=== PATIENT | male | born 1945 | race Caucasian/White ===

== ENCOUNTER 2019-01-16 17:38 | Emergency (ER) | payer OTHER ==
--- NOTE | 2019-01-16 18:11 | EDPHY ---
H & P Stated Complaint: left hand red and swollen, possible infection Time Seen by Provider: 01/16/19 18:08 HPI/ROS: HPI: This is a 73-year-old male who presents with Chief Complaint: left hand red and swollen, possible infection Location: Left middle finger Quality: Redness, swelling Duration: 3 days Signs and Symptoms: No bleeding, no radiation, no numbness, no weakness, no tingling, no incontinence, + decreased range of motion, + swelling, + pain, no fever Timing: Worsening Severity: Moderate to severe Context: Patient presents from [facility] urgent care with complaints of left middle finger redness, swelling, pain, decreased range of motion x3 days. Patient reports that he was told to come to the emergency room and he would "see a hand surgeon." Ten days ago patient was drooling and accidentally hit his left middle finger on the palmar aspect. Patient reports that he is right-hand dominant. Patient is extremely upset that he will not be seen by hand surgeon in the emergency room. Denies fever, weakness, chills, drainage. Reports tetanus is up-to-date. Modifying Factors: None Comment: ROS: A comprehensive 10 system review of systems is otherwise negative aside from elements mentioned in the history of present illness. MEDICAL/SURGICAL/SOCIAL HISTORY: Medical history: Generally healthy. Does not take any regular medications. Surgical history: Denies Social history: Former smoker. Retired. CONSTITUTIONAL: Adult white male, nontoxic in appearance, awake and alert, no obvious distress HEENT: Atraumatic and normocephalic. NECK: supple, no midline tenderness Cardiovascular: Normal S1/S2, regular rate, regular rhythm, without murmur rub or gallop. PULMONARY/CHEST: Symmetrical and nontender. Clear to auscultation bilaterally. Good air movement. No accessory muscle usage. ABDOMEN: Soft, nondistended, nontender. EXTREMITIES: 2/2 pulses, strength 5/5, left middle finger palmar aspect shows tiny pinpoint scab near the MCP joint with moderate to severe swelling to the point that the finger is twice the size of the other fingers; redness, warmth. Pain with flexion extension. + Kanavel's signs DIP/PIP/MCP flexion/extension intact with good light touch sensation. no deformities, no clubbing, no cyanosis or edema. NEUROLOGICAL: no focal neuro deficits. GCS 15. Light touch sensation intact. SKIN: Warm and dry, no erythema. no rash. Good capillary refill. Source: Patient, RN/MD Exam Limitations: No limitations - Personal History Current Tetanus/Diphtheria Vaccine: Yes Current Tetanus Diphtheria and Acellular Pertussis (TDAP): Yes - Medical/Surgical History Hx Asthma: No Hx Chronic Respiratory Disease: No Hx Diabetes: No Hx Cardiac Disease: No Hx Renal Disease: No Hx Cirrhosis: No Hx Alcoholism: No Hx HIV/AIDS: No Hx Splenectomy or Spleen Trauma: No - Social History Smoking Status: Former smoker Constitutional: Initial Vital Signs Temperature (C) 37 C 01/16/19 17:41 Heart Rate 65 01/16/19 17:41 Respiratory Rate 18 01/16/19 17:41 Blood Pressure 130/69 H 01/16/19 17:41 O2 Sat (%) 96 01/16/19 17:41 O2 Delivery Mode Room Air Allergies/Adverse Reactions: No Known Allergies Allergy (Unverified 01/16/19 17:45) Home Medications: Medication Instructions Recorded NK [No Known Home Meds] 01/16/19 Medical Decision Making ED Course/Re-evaluation: Vital signs reviewed and stable upon arrival. No systemic signs. Tetanus is up-to-date. Recommended inpatient hospitalization for IV antibiotics and Hand surgery consult for possible washout. Patient is alert and oriented x4, competent to make decisions, but refuses to be admitted to the hospital. Patient understands the risk of worsening infection, sepsis, , loss of limb. Patient has agreed to have laboratory studies and IV antibiotics being administered. Given IV Ancef 1 g and IV vancomycin 1 g 1930: Labs reviewed. No leukocytosis, anemia, platelet dysfunction. CRP 38, ESR 8, creatinine 1.1 Patient understands that he is to call Dr. Lozada office tomorrow for follow-up appointment date and time. This patient was seen under the supervision of my secondary supervising physician. I evaluated care for this patient with attending. Differential Diagnosis: Differential diagnosis includes but is not limited to abscess, tenosynovitis, sepsis. - Data Points Laboratory Results: Laboratory Results 01/16/19 18:21 01/16/19 18:21 01/16/19 01/16/19 18:21 18:21 WBC 5.81 10^3/uL 10^3/uL (3.80-9.50) RBC 5.13 10^6/uL 10^6/uL (4.40-6.38) Hgb 15.5 g/dL g/dL (13.7-17.5) Hct 46.0 % % (40.0-51.0) MCV 89.7 fL fL (81.5-99.8) MCH 30.2 pg pg (27.9-34.1) MCHC 33.7 g/dL g/dL (32.4-36.7) RDW 12.3 % % (11.5-15.2) Plt Count 248 10^3/uL 10^3/uL (150-400) MPV 9.3 fL fL (8.7-11.7) Neut % (Auto) 47.1 % % (39.3-74.2) Lymph % (Auto) 43.0 % % (15.0-45.0) Throckmorton % (Auto) 7.9 % % (4.5-13.0) Eos % (Auto) 1.4 % % (0.6-7.6) Baso % (Auto) 0.3 % % (0.3-1.7) Nucleat RBC Rel Count 0.0 % % (0.0-0.2) Absolute Neuts (auto) 2.73 10^3/uL 10^3/uL (1.70-6.50) Absolute Lymphs (auto) 2.50 10^3/uL 10^3/uL (1.00-3.00) Absolute Monos (auto) 0.46 10^3/uL 10^3/uL (0.30-0.80) Absolute Eos (auto) 0.08 10^3/uL 10^3/uL (0.03-0.40) Absolute Basos (auto) 0.02 10^3/uL 10^3/uL (0.02-0.10) Absolute Nucleated RBC 0.00 10^3/uL 10^3/uL (0-0.01) Immature Gran % 0.3 % % (0.0-1.1) Immature Gran # 0.02 10^3/uL 10^3/uL (0.00-0.10) ESR 8 MM/HR MM/HR (0-20) Sodium 137 mEq/L mEq/L (135-145) Potassium 4.4 mEq/L mEq/L (3.5-5.2) Chloride 100 mEq/L mEq/L (97-110) Carbon Dioxide 25 mEq/l mEq/l (22-31) Anion Gap 12 mEq/L mEq/L (6-14) BUN 22 mg/dL mg/dL (7-23) Creatinine 1.1 mg/dL mg/dL (0.7-1.3) Estimated GFR > 60 Glucose 102 mg/dL H mg/dL (70-100) Calcium 9.8 mg/dL mg/dL (8.5-10.4) C-Reactive Protein 37.9 mg/L H mg/L (<10.0) Medications Given: Discontinued Medications Cefazolin Sodium/Dextrose (Ancef 1 Gm (Premix)) 50 mls @ 200 mls/hr IV EDNOW ONE PRN Reason: Protocol Stop: 01/16/19 18:30 Last Admin: 01/16/19 19:16 Dose: 50 mls Vancomycin/Sodium Chloride (Vancomycin 1 Gm (Premix)) 250 mls @ 250 mls/hr IV EDNOW ONE PRN Reason: Protocol Stop: 01/16/19 19:15 Last Admin: 01/16/19 18:34 Dose: 250 mls Departure - Departure Disposition: Against Medical Advice Clinical Impression: Abscess of left middle finger, Cellulitis of left middle finger, Tenosynovitis of finger Condition: Fair Instructions: Cellulitis (ED), Tenosynovitis (ED) Additional Instructions: Please call Orthopedics/Hand first thing tomorrow morning as you will need to be seen tomorrow in the office. Follow-Up: Please follow-up as noted above. Follow-up sooner if your condition worsens or if you develop any new problems. Call as soon as possible for an appointment. Be clear when you call for an appointment that this is an Emergency Department follow-up. Contact the Emergency Department if you have trouble arranging follow-up care. Our referrals are not based on your insurance network. When time allows, contact your insurance carrier to verify the referral physician is in your plan. If not, get a referral for an in-personal computer network engineer. By leaving against medical advise you have verbalized complete understanding and acceptance of the risks associated with doing so, including, but not limited to, , chronic & permanent disability and impairment, and other circumstances and consequences too numerous to mention herein Referrals: Theo Lozada MD [Medical Doctor] - As per Instructions
[2019-01-16] MEDS ORDERED: VANCOMYCIN HCL/NORMAL SALINE 250 ML IV ONE (18:16)
[2019-01-16 18:32] LABS: PLATELET COUNT 248 10^3/uL (150-400)
[2019-01-16 19:46] VITALS: BP 123/74
== END 2019-01-16 19:46 | disposition left against medical advice (07) ==
DX: L03.012 Cellulitis of left finger (principal); M65.842 Other synovitis and tenosynovitis, left hand
CPT/HCPCS: 96365; 96375; 99284; J0690; J3370

== ENCOUNTER 2019-01-17 15:36 | Inpatient (IN) | payer OTHER ==
--- NOTE | 2019-01-17 15:58 | EDPHY ---
H & P Stated Complaint: Seen for infected L mid finger, no exudate. Swollen. Time Seen by Provider: 01/17/19 15:48 HPI/ROS: CHIEF COMPLAINT: Left middle digit finger infection HISTORY OF PRESENT ILLNESS: 73-year-old male seen emergency department originally last evening for concerns of infection left middle digit. At that time was recommended he be admitted to the hospital, he left against medical advice. He followed up in the office of Dr. Theo Lozada, saw 1 of the orthopedic PAs who referred the patient back to the emergency department to plan for surgical washout and hospital admission. The patient initially had a puncture wound to the palmar aspect, proximal aspect of the proximal phalanx of the 3rd digit. While in the ER last evening he received dose of IV Ancef and IV vancomycin. He notes no improvement symptoms, no worsening of symptoms however. Denies: Fever, chills, immunosuppressed condition Last oral intake was Yi food at 1:00 p.m. today. REVIEW OF SYSTEMS: 10 systems reviewed and negative with the exception of the elements mentioned in the history of present illness PAST MEDICAL & SURGICAL HISTORY: No pertinent medical or surgical history . No anticoagulant use. Tetanus was updated at his emergency department visit yesterday. SOCIAL HISTORY: Nonsmoker PHYSICAL EXAM (Prior to examination, patient consented to physical exam, hands were washed and my usual and customary physical exam procedures followed) 1) GENERAL: Well-developed, well-nourished, alert and oriented. Appears to be in no acute distress. 2) HEAD: Normocephalic, atraumatic 3) HEENT: Pupils equal, round, reactive to light bilaterally. Sclera anicteric. Nasopharynx, oropharynx, clear, no lesions. MoistDry mucous membranes. Ears bilaterally with normal tympanic membranes. 4) NECK: Full range of motion, no meningeal signs. 5) LUNGS: Clear auscultation bilaterally, no wheezes, no rhonchi, no retractions. 6) HEART: Regular rate and rhythm, no murmur, no heave, no gallop. 7) ABDOMEN: No guarding, no rebound, no focal tenderness, negative McBurney's, negative 's, negative Rovsing's, negative peritoneal sign, 8) MUSCULOSKELETAL: Left hand: Left middle digit positive kanavel sign, notably pain along the flexor tendon sheath, pain with passive extension of the digit, swollen digit, digit kept in flexion. No crepitus. Brisk capillary refill. 9) BACK: No CVA tenderness, no midline vertebral tenderness, no fluctuance, no step-off, no obvious trauma, no visual or palpable abnormality. 10) SKIN: No rash, no petechiae. 11) Psychiatric: Patient is oriented X 3, there is no agitation. DIFFERENTIAL DIAGNOSIS: In no particular order including but not limited to infectious tenosynovitis, cellulitis, necrotizing fasciitis - Personal History Current Tetanus/Diphtheria Vaccine: Unsure - Medical/Surgical History Hx Asthma: No Hx Chronic Respiratory Disease: No Hx Diabetes: No Hx Cardiac Disease: No Hx Renal Disease: No Hx Cirrhosis: No Hx Alcoholism: No Hx HIV/AIDS: No Hx Splenectomy or Spleen Trauma: No - Social History Smoking Status: Former smoker Constitutional: Initial Vital Signs Temperature (C) 36.8 C 01/17/19 15:42 Heart Rate 75 01/17/19 15:42 Respiratory Rate 16 01/17/19 15:42 Blood Pressure 130/73 H 01/17/19 15:42 O2 Sat (%) 94 01/17/19 15:42 O2 Delivery Mode Room Air Allergies/Adverse Reactions: No Known Allergies Allergy (Verified 01/17/19 15:42) Home Medications: Medication Instructions Recorded NK [No Known Home Meds] 01/16/19 Medical Decision Making - Diagnostics Imaging Results: Imaging Impressions Finger X-Ray 01/17/19 15:54 Impression: Soft tissue swelling left third finger without underlying osseous abnormality. ED Course/Re-evaluation: 3:59 p.m.: Case discussed with secondary supervising physician Dr. Ramiro Harper in the ER. I reviewed old medical records. Patient agrees to stand Hospital. Will obtain blood work, administer IV antibiotics, consult with hospitalist and Hand surgery on-call Dr. Theo Lozada. 4:24 p.m.: Consultation Dr. Theo Lozada Hand surgery who will plan taking the patient operating room later this evening. Patient remains NPO since 1:[address] Theo Lozada requests we hold on further IV antibiotics at this time. - Data Points Laboratory Results: Laboratory Results 01/17/19 16:00 01/17/19 16:00 01/17/19 01/17/19 16:00 16:00 WBC 5.04 10^3/uL 10^3/uL (3.80-9.50) RBC 4.84 10^6/uL 10^6/uL (4.40-6.38) Hgb 14.8 g/dL g/dL (13.7-17.5) Hct 42.8 % % (40.0-51.0) MCV 88.4 fL fL (81.5-99.8) MCH 30.6 pg pg (27.9-34.1) MCHC 34.6 g/dL g/dL (32.4-36.7) RDW 12.2 % % (11.5-15.2) Plt Count 257 10^3/uL 10^3/uL (150-400) MPV 9.4 fL fL (8.7-11.7) Neut % (Auto) 55.8 % % (39.3-74.2) Lymph % (Auto) 36.3 % % (15.0-45.0) Rooks % (Auto) 6.3 % % (4.5-13.0) Eos % (Auto) 1.0 % % (0.6-7.6) Baso % (Auto) 0.4 % % (0.3-1.7) Nucleat RBC Rel Count 0.0 % % (0.0-0.2) Absolute Neuts (auto) 2.81 10^3/uL 10^3/uL (1.70-6.50) Absolute Lymphs (auto) 1.83 10^3/uL 10^3/uL (1.00-3.00) Absolute Monos (auto) 0.32 10^3/uL 10^3/uL (0.30-0.80) Absolute Eos (auto) 0.05 10^3/uL 10^3/uL (0.03-0.40) Absolute Basos (auto) 0.02 10^3/uL 10^3/uL (0.02-0.10) Absolute Nucleated RBC 0.00 10^3/uL 10^3/uL (0-0.01) Immature Gran % 0.2 % % (0.0-1.1) Immature Gran # 0.01 10^3/uL 10^3/uL (0.00-0.10) Sodium 137 mEq/L mEq/L (135-145) Potassium 4.3 mEq/L mEq/L (3.5-5.2) Chloride 106 mEq/L mEq/L (97-110) Carbon Dioxide 24 mEq/l mEq/l (22-31) Anion Gap 7 mEq/L mEq/L (6-14) BUN 19 mg/dL mg/dL (7-23) Creatinine 1.0 mg/dL mg/dL (0.7-1.3) Estimated GFR > 60 Glucose 102 mg/dL H mg/dL (70-100) Calcium 9.8 mg/dL mg/dL (8.5-10.4) Departure - Departure Disposition: [facility] Inpatient Acute Clinical Impression: Infectious tenosynovitis Condition: Fair
[2019-01-17] MEDS ORDERED: oxyCODONE IR 5 MG TAB PO PRN (16:23)
[2019-01-17] MEDS ORDERED: HYDROmorphONE/DILAUDID 1 MG/ML INJ IVP PRN (16:23)
[2019-01-17] MEDS ORDERED: ONDANSETRON 4 MG/2 ML VIAL IVP PRN ×2 (16:23→21:32)
[2019-01-17] MEDS ORDERED: ACETAMINOPHEN 325 MG TAB PO PRN (16:23)
[2019-01-17] MEDS ORDERED: ONDANSETRON DISINTEGRATING 4 MG TAB PO PRN (16:23)
[2019-01-17 16:25] LABS: PLATELET COUNT 257 10^3/uL (150-400)
--- NOTE | 2019-01-17 16:40 | PDGENHP ---
History and Physical - Chief Complaint finger infection - History of Present Illness 73yo healthy M presents to ED with left 3rd finger swelling, pain, and decreased ROM. He was using a drill approximately 2 weeks ago. It slipped and punctured the palmar aspect of proximal left 3rd finger. He applied hydrogen peroxide and was soaking it in epsom salt baths but it wasn't improving. He also tried to drain it at home but nothing came out. He came to the ED yesterday. He was administered IV cefazolin and vancomycin. Hand surgery was called who recommended admission but the patient left AMA. He did not notice any improvement in his symptoms after receiving antibiotics. He did have some chills last night but no fevers. He hasn't noticed any drainage or redness spreading up his arm. He is unable to flex the finger. No pain at wrist or elbow. In the ED, Dr Lozada of hand surgery was consulted and is planning on taking him to the OR later this evening. He last ate at 1pm today. Case discussed with ED provider Daniella Wong. History Information - Allergies/Home Medication List Allergies/Adverse Reactions: No Known Allergies Allergy (Verified 01/17/19 15:42) Home Medications: NK [No Known Home Meds] 01/16/19 [Last Taken Unknown] I have personally reviewed and updated: family history, medical history, social history, surgical history - Past Medical History no pertinent PMH - Surgical History Additional surgical history: hernia repair - Family History Positive for: non-pertinent - Social History Smoking Status: Former smoker Alcohol Use: Rarely Drug Use: None Additional social history: Lives alone. 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 Review of Systems Review of Systems: ROS: 10pt was reviewed & negative except for what was stated in HPI & below Physical Exam Physical Exam: Temp Pulse Resp BP Pulse Ox 36.8 C 75 16 130/73 H 94 01/17/19 15:42 01/17/19 15:42 01/17/19 15:42 01/17/19 15:42 01/17/19 15:42 Constitutional: no apparent distress, appears nourished, not in pain Eyes: PERRL, anicteric sclera, EOMI Ears, Nose, Mouth, Throat: moist mucous membranes, hearing normal, ears appear normal, no oral mucosal ulcers Cardiovascular: regular rate and rhythym, no murmur, rub, or gallop, other (2+ left radial pulse), No edema Respiratory: no respiratory distress, no rales or rhonchi, clear to auscultation Gastrointestinal: normoactive bowel sounds, soft, non-tender abdomen, no palpable masses Genitourinary: no bladder fullness, no bladder tenderness Skin: other (swelling, mild erythema of proximal left 3rd digit with small puncture wound, no lymphangitic spread) Musculoskeletal: other (unable to flex 3rd digit) Neurologic: AAOx3, sensation intact bilaterally Psychiatric: interacting appropriately, not anxious, not encephalopathic, thought process linear Lab Data & Imaging Review 01/17/19 16:00 01/17/19 16:00 WBC 5.04 10^3/uL (3.80-9.50) 01/17/19 16:00 RBC 4.84 10^6/uL (4.40-6.38) 01/17/19 16:00 Hgb 14.8 g/dL (13.7-17.5) 01/17/19 16:00 Hct 42.8 % (40.0-51.0) 01/17/19 16:00 MCV 88.4 fL (81.5-99.8) 01/17/19 16:00 MCH 30.6 pg (27.9-34.1) 01/17/19 16:00 MCHC 34.6 g/dL (32.4-36.7) 01/17/19 16:00 RDW 12.2 % (11.5-15.2) 01/17/19 16:00 Plt Count 257 10^3/uL (150-400) 01/17/19 16:00 MPV 9.4 fL (8.7-11.7) 01/17/19 16:00 Neut % (Auto) 55.8 % (39.3-74.2) 01/17/19 16:00 Lymph % (Auto) 36.3 % (15.0-45.0) 01/17/19 16:00 Craig % (Auto) 6.3 % (4.5-13.0) 01/17/19 16:00 Eos % (Auto) 1.0 % (0.6-7.6) 01/17/19 16:00 Baso % (Auto) 0.4 % (0.3-1.7) 01/17/19 16:00 Nucleat RBC Rel Count 0.0 % (0.0-0.2) 01/17/19 16:00 Absolute Neuts (auto) 2.81 10^3/uL (1.70-6.50) 01/17/19 16:00 Absolute Lymphs (auto) 1.83 10^3/uL (1.00-3.00) 01/17/19 16:00 Absolute Monos (auto) 0.32 10^3/uL (0.30-0.80) 01/17/19 16:00 Absolute Eos (auto) 0.05 10^3/uL (0.03-0.40) 01/17/19 16:00 Absolute Basos (auto) 0.02 10^3/uL (0.02-0.10) 01/17/19 16:00 Absolute Nucleated RBC 0.00 10^3/uL (0-0.01) 01/17/19 16:00 Immature Gran % 0.2 % (0.0-1.1) 01/17/19 16:00 Immature Gran # 0.01 10^3/uL (0.00-0.10) 01/17/19 16:00 Interpretation: Left finger x-ray: soft tissue swelling at 3rd finger without any underlying osseus abnormality Assessment & Plan Assessment: 73yo healthy M presents to ED with left 3rd finger swelling, pain, and decreased ROM. Plan: #Left 3rd digit flexor tendon tenosynovitis - Dr Lozada of hand surgery consulted, planning on taking to OR this evening for I&D and cultures - Hold on additional antibiotics until after procedure - Pain control VTE ppx: SCDs Code: full Diet: NPO until procedure, then regular Dispo: Admit under observation
--- NOTE | 2019-01-17 16:42 | SOAPPROG ---
SOAP Progress Note Assessment/Plan: Assessment: L III septic flexor tendon tenosynovitis. Plan: To OR urgently for I+D and Cultures. Hold IV ABX until post cultures in OR. 01/17/19 16:39 Objective: Vital Signs Temp Pulse Resp BP Pulse Ox 36.8 C 75 16 130/73 H 94 01/17/19 15:42 01/17/19 15:42 01/17/19 15:42 01/17/19 15:42 01/17/19 15:42 ICD10 Worksheet Patient Problems: Problems Problem Status Onset Tenosynovitis of finger and hand Acute Tenosynovitis of left hand Acute - ICD10 Problem Qualifiers (1) Tenosynovitis of finger and hand (2) Tenosynovitis of left hand
[2019-01-17] MEDS ORDERED: LR 1,000 ML IV ONE (20:05)
[2019-01-17] MEDS ORDERED: BUPIVACAINE 0.5% 30 ML SDV ONE (20:20)
[2019-01-17] MEDS ORDERED: PROPOFOL 200 MG/20 ML VIAL ONE (21:04)
[2019-01-17] MEDS ORDERED: fentaNYL 100 MCG/2 ML INJ ONE (21:04)
[2019-01-17] MEDS ORDERED: NALOXONE HCL 0.4 MG/ML INJ IVP PRN (21:07)
--- NOTE | 2019-01-17 21:07 | PDANEPAE ---
ANE Past Medical History - Pulmonary History Hx Oxygen in Use at Home: No Hx Sleep Apnea: No Sleep Apnea Screening Result - Last Documented: Positive - Endocrine History Hx Diabetes: No Obesity: no - Chronic Pain History Chronic Pain: No ANE Review of Systems Review of Systems: ANE Patient History - Allergies Allergies/Adverse Reactions: No Known Allergies Allergy (Verified 01/17/19 15:42) - Home Medications Home medications: home medication list seen and reviewed Home Medications: NK [No Known Home Meds] 01/16/19 [Last Taken Unknown] - NPO status NPO Status: no food or drink >8 hours NPO Since - Liquids (Date): 01/17/19 NPO Since - Liquids (Time): 12:30 NPO Since - Solids (Date): 01/17/19 NPO Since - Solids (Time): 12:30 - Anes Hx Anes Hx: no prior problems - Smoking Hx Smoking Status: Former smoker - Alcohol Use Alcohol Use: Rarely ANE Labs/Vital Signs - Labs Result Diagrams: 01/17/19 16:00 01/17/19 16:00 - Vital Signs Blood Pressure: 119/74 Heart Rate: 62 Respiratory Rate: 16 O2 Sat (%): 95 Height: 182.88 cm Weight: 77.111 kg ANE Physical Exam - Airway Neck exam: FROM Mallampati Score: Class 1 Mouth exam: normal dental/mouth exam - Pulmonary Pulmonary: no respiratory distress, no rales or rhonchi, clear to auscultation - Cardiovascular Cardiovascular: regular rate and rhythym, no murmur, rub, or gallop - ASA Status ASA Status: I ANE Anesthesia Plan Anesthesia Plan: GA w LMA
[2019-01-17] MEDS ORDERED: ONDANSETRON 4 MG/2 ML VIAL ONE (21:11)
[2019-01-17] MEDS ORDERED: KETOROLAC 30 MG/1 ML SDV ONE (21:11)
[2019-01-17] MEDS ORDERED: LIDOCAINE 2% 5 ML SDV ONE (21:11)
[2019-01-17] MEDS ORDERED: LR 500 ML IV PRN (21:32)
[2019-01-17] MEDS ORDERED: PROMETHAZINE HCL 25 MG/ML INJ IVP PRN (21:32)
[2019-01-17] MEDS ORDERED: fentaNYL 100 MCG/2 ML INJ IVP PRN (21:32)
[2019-01-17] MEDS ORDERED: MEPERIDINE 25 MG/0.5 ML AMP IVP PRN (21:32)
[2019-01-17] MEDS ORDERED: HYDROCODONE/APAP 5/325 TAB PO PRN (21:32)
[2019-01-17] MEDS ORDERED: ceFAZolin 1 GM VIAL ONE ×2 (21:43)
--- NOTE | 2019-01-17 21:57 | POSTOPPROG ---
Post Op Note Date of Operation: 01/17/19 Surgeon: Theo Lozada Anesthesiologist: Yulisa Estrella Anesthesia: LMA Pre-op Diagnosis: Septic L III Flexor Tendon Tenosysnovitis Post-op Diagnosis: Same Procedure: Drainage or Flexor sheath L III Findings: Thick pus Inf/Abcess present in the surg proc area at time of surgery?: Yes Depth: Organ Space EBL: Minimal Bowel Protocol: No Clean Closure Performed: No Specimen(s): Culture to Lab
--- NOTE | 2019-01-17 21:59 | POSTANESTH ---
Post Anesthetic Evaluation Cardiovascular Status: Normal, Stable, Similar to Pre-Op Cond Respiratory Status: Normal, Stable, Similar to Pre-op Cond. Level of Consciousness/Mental Status: Can Participate in Eval, Moderately Sleepy Pain Control: Adequate, Prn Tx Ordered Nausea/Vomiting Control: Adequate, Prn Tx Ordered Complications Possibly Related to Anesthesia: None Noted
[2019-01-17] MEDS ORDERED: VANCOMYCIN 750 MG in D5W 150 ML IV SCH (22:30)
[2019-01-17] MEDS ORDERED: VANCOMYCIN 1.25 GM in NS 250 ML IV ONE (23:00)
--- NOTE | 2019-01-18 06:13 | GCON ---
[f rep st] CONSULTATION INPATIENT CONSULTATION DATE OF CONSULTATION: 01/17/2019 REASON FOR CONSULTATION: Infected left long finger. HISTORY: I was asked to see the patient due to the ongoing infection identified in the left long fin reynaldo at 2 different emergency department visits. One was last night when the patient left without julien atment. He presented again today to the emergency department and agreed to admission to the hospital for this. He had all 4 positive cannibal signs for infection of the flexor tendon sheath of the lef t long finger. HISTORY OF PRESENT ILLNESS: Approximately 2 weeks ago he was using a power drill when it slipped and the drill point punctured his left long finger. He treated this with hydrogen peroxide and Viverae lt soakings. He tried to drain this at home, but was unsuccessful with this. He did get 1 dose of I V Kefzol yesterday in the emergency department. He did not agree to a hospital admission yesterday. The lack of any improvement today, however, prompted him to return. He was admitted to the hospital with plans to be brought to the operating room for I and D procedure based on his clinical presentat ion. Otherwise, he is generally in good health. He indicates he does not have any allergies to medi cations nor does he take any medications routinely. The remaining portion of his history is well out lined in his admission H and P and both emergency department visits from today and from yesterday, wh ich I have reviewed. EXAMINATION: This is essentially confined to the left hand. His left long finger is markedly swolle n. He is exquisitely tender along the flexor tendon sheath to a much greater extent than he is along any of the extensor surfaces. He holds the left long finger in a position of flexion and has signif icant increased discomfort with any attempts to extend the finger. This represents all 4 cannibal ca rdinal signs for flexor tendon sheath infection. He, however, does not have an elevated temperature and his white count is normal. In spite of the normal white count, he has clear evidence of flexor t endon sheath infection of the left long finger. PLAN: My plan is to bring him to the operating room for formal I and D procedure and obtaining of de finitive cultures. I estimate he will be hospitalized for 2-3 days while we determine appropriate an tibiotic therapy for this. /[id number]/MODL
--- NOTE | 2019-01-18 06:23 | GOP ---
[f rep st] OPERATIVE REPORT DATE OF OPERATION: 01/18/2019 SURGEON: Theo Lozada MD PREOPERATIVE DIAGNOSIS: Left long finger septic flexor tenosynovitis. POSTOPERATIVE DIAGNOSIS: Left long finger septic flexor tenosynovitis. PROCEDURE PERFORMED: Irrigation and debridement procedure left long finger flexor tendon sheath. FINDINGS: Thick pus was identified within the flexor tendon sheath all the way from the distal to th e A4 daria at the insertion of the profundus tendon through the proximal opening of the A1 daria. This was irrigated until clear return was achieved. Cultures were obtained from the pus within the flexor tendon sheath. INDICATIONS: The patient is a 73-year-old gentleman, approximately 2 weeks ago had a puncture wound to his left long finger with a drill point that slipped. It has progressively gotten worse despite t he hydrogen peroxide cleansing and Epsom salt soaks. His finger has become remarkably stiff and at p resentation to the emergency department yesterday, he was positive for cannibal signs. The patient l eft the emergency department against medical advice at that time, but returned today for definitive t reatment. Due to all 4 cannibal signs being positive for flexor tenosynovitis, he is brought urgentl y to the operating room for definitive management and obtaining of definitive cultures. DESCRIPTION OF PROCEDURE: After routinely checking the patient's identification and consent and the successful induction of an LMA general anesthetic, the patient's left upper extremity was prepped and draped in the usual standard fashion. A surgical time-out was completed. I did exsanguinate the gracia nd but not the long finger with an Esmarch wrap and a pneumatic tourniquet previously placed about th e proximal left arm was inflated to 250 mmHg. A longitudinal incision over the region of the A1 pull ey and a transverse incision at the DIP flexion crease were both carried sharply through the skin. S pread bluntly through the subcutaneous tissue down to the level of the flexor tendon sheath. Distall y, when I opened the sheath just at its insertion at the insertion of the FDP, there was thick pus id entified. I milked this out distally by pressing on the flexor sheath over the middle phalanx and th ick pus was encountered. This was sent for culture. I then dissected through the longitudinal incis ion over the A1 daria down to the flexor tendon sheath and I incised the A1 daria opening it. I pa ssed the pediatric feeding tube from proximal to distal, ending in the middle of the flexor tendon sh eath. I then irrigated approximately 50 cc of normal saline with all this being distributed distally out the end of the finger until this was clear. I performed identical procedure by placing the feed ing tube from distal to proximal and then irrigating this until the fluid was clear coming out of the proximal wound. I then irrigated both wounds thoroughly. I closed the wounds with simple sutures o f 4-0 nylon followed by application of a sterile bulky dressing and compressive wrap. The patient to lerated the procedure well. He was reversed his anesthetic and extubated in the operating room. He was transferred to the recovery room in excellent condition. There were no complications. /[id number]/MODL
--- NOTE | 2019-01-18 10:07 | ASMTCMCOM ---
CM Note CM Note Notes: Patient admitted with infectious tenosynovitis of the L long finger. He was taken to OR yesterday for I&D + cultures. He is normally healthy and independent. I do not anticipate any d/c needs. Case Management available if this changes. Current CM discharge plan: home independent Date Signed: 01/18/2019 10:06 AM Electronically Signed By:Anni Camarillo RN
[2019-01-18] MEDS: VANCOMYCIN 750 MG in D5W 150 ML IV SCH ×2 (11:51→23:45)
--- NOTE | 2019-01-18 13:03 | HOSPPROG ---
Hospitalist Progress Note Assessment/Plan: Nadir is a 73yo healthy M presents to ED with left 3rd finger swelling, pain, and decreased ROM. 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 *plan: Nadir will need another midnight stay for treatment of the above, he will require IV abx and need to await cultures. ID will see him later. I reviewed w him the risks of not treating his finger appropriately and he is willing to stay. - Subjective: Nadir said his pain is well managed, concerned about being on abx and becoming immunocompromised and being in a hospital Objective: Vital Signs Temp Pulse Resp BP Pulse Ox 36.9 C 71 15 102/56 L 93 01/18/19 11:07 01/18/19 11:07 01/18/19 11:07 01/18/19 11:07 01/18/19 11:07 Microbiology 01/17/19 21:00 Gram Stain - Final Finger - Eswab 01/17/19 01/18/19 01/19/19 05:59 05:59 05:59 Intake Total 660 500 Output Total 660 30 Balance 0 470 - Physical Exam Constitutional: no apparent distress, appears nourished, not in pain Eyes: PERRL, other (glasses) Ears, Nose, Mouth, Throat: hearing normal Cardiovascular: regular rate and rhythym Respiratory: no respiratory distress Skin: warm, other (left middle finger w dressing in place) Musculoskeletal: full muscle strength Neurologic: AAOx3 Psychiatric: interacting appropriately ICD10 Worksheet Patient Problems: Problems Problem Status Onset Infectious tenosynovitis Acute Tenosynovitis of finger and hand Acute Tenosynovitis of left hand Acute
--- NOTE | 2019-01-18 13:34 | PDMN ---
Medical Necessity Medical necessity: Change to IP, as of 01/18/19, per [facility] & [facility] Wound [facility] Skin [facility]aga[facility]; los >2 mn s/p I&D of L long finger flexor tendon sheath; awaiting cultures; requiring further monitoring, ID consult & IV abx
[2019-01-18] MEDS: SULFAMETHOX/TMP 800/160 MG 1 TAB PO SCH ×2 (16:53→20:55)
--- NOTE | 2019-01-18 17:29 | PDCONSULT ---
News Production Supervisor Note: Infectious Diseases Consult Note Impression: 73-year-old man with left 3rd finger flexor tendon tenosynovitis secondary to traumatic puncture wound to the base with a dirty mechanical instrument. The likelihood is that this will be a staphylococcal or streptococcal infection with cultures possibly remaining negative as he had received IV antibiotics the day prior to admission. IV antibiotics are not required for this infection as we have well absorbed oral agents that will be effective against staphylococcal and streptococcal organisms. Will start with Bactrim today to determine if he will tolerate this medication. 1. Left 3rd finger flexor tendon tenosynovitis 2. Status post left 3rd finger flexor tendon irrigation and debridement 2018 Plan: 1. Continue vancomycin 2. Start Bactrim 1 double-strength tablet twice daily 3. Reviewed in detail potential side effects of trimethoprim/sulfamethoxazole to include: allergy, rash, nausea, antibiotic-associated diarrhea, Clostridioides difficile colitis, increased creatinine, increased potassium. 4. Will plan outpatient infectious disease follow-up Eric Wright MD Infectious Diseases Chief Complaint: Left 3rd finger swelling Requesting Provider: Joy Yun Reason for Referral: Consultation was requested by Joy Yun regarding antimicrobial management. HPI: 73-year-old man who presented approximately 2 weeks after traumatic puncture injury to the base of the left 3rd finger. He was using a drill to drive a screw in September that slipped and punctured the base of the palmar aspect of the left 3rd finger. Initially there was significant amount of bleeding but he use local self prescribed treatments with hydrogen peroxide and keeping the area open with a needle sterilize with hydrogen peroxide. The finger had some swelling for approximately a week but 1 week into this local care the finger started to swell significantly more. He had minimal bloody drainage throughout this process. 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 He does not have fish tank or bird bath at home that the finger was emerged in. He has taken regular showers and washed with soap and water and has clean dishes but otherwise no water exposures after the puncture wound. He does work with [employer] it is nursery but not in the recent past. He has not had his hands emerged into mulch or muddy water. He underwent surgical debridement on the he states he has improved range of motion since surgery. He did not notice fevers at any point in the 2 weeks after his injury but did notice some chills in the day or 2 prior to admission. He had presented to the emergency department prior to admission but had declined admission. He received cefazolin and vancomycin in the emergency department. He presented to the orthopedic urgent care for evaluation and was told to go back to the emergency department as this required surgical management. Chronology of Present Illness: Location of symptoms: Left 3rd finger from the base to the tip Onset of symptoms: Approximately 2 weeks prior to admission when he had a traumatic injury with a drill head puncturing the skin at the base of the left 3rd finger Initial signs/symptoms: Local irritation and bleeding Associated signs/symptoms at onset: No fevers, chills, night sweats; no rash over the finger Changes since onset: Over time course of approximately 1 week prior to admission the finger became increasingly swollen with decreasing range of motion and increasing pain Exacerbating factors: Movement Relieving factors: None identified Antibiotics since symptom onset: Vancomycin since admission; dose of vancomycin and cefazolin day prior to admission in the emergency department Change in symptoms with antibiotics: Overall the fingers improved but this is post surgery and debridement Relevant social history: 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 Past Medical History: No chronic medical conditions Past Surgical History: Left 3rd finger irrigation and debridement of the flexor tendon sheath 01/18/2019; hernia repair Social History: Does not use tobacco products; occasionally smokes marijuana; no alcohol use; Does not use any other drugs currently or in the past Family History: No family members with recurrent infections Allergies: NKDA Medications: Reviewed in medical record and confirmed with patient. ROS: 10 organ systems reviewed; pertinent positives and negatives listed in the HPI, all other organ systems negative. Physical Exam: VS: Reviewed Gen: No acute distress; Breathing comfortably without supplemental oxygen; Able to speak in complete sentences Eyes: No conjunctival injection; No scleral icterus HENT: No gross deformities Neck: No limitation in range of motion Pulm: Audible inspiratory sounds to the bases bilaterally; No wheeze, rhonchi, or rales CV: Normal S1 and S2; Regular rate and rhythm; No murmurs, rubs, or gallops; No lower extremity edema Abd: Not distended; Normo-active bowel sounds; Soft; Non-tender Skin: A full skin exam including exposed bilateral upper extremities, bilateral lower extremities to the knees, face, neck, abdomen, chest, and back performed; Skin intact, warm, with no rash MSK: 3rd digit on the left hand with circumferential edema extending from the base to the tip, no visible erythema, able to move the finger with limited range of motion Ext: No clubbing or cyanosis Neuro: Awake and alert Psych: Normal mood and affect Labs/Imaging: All microbiology testing (culture and non-culture) reviewed in the medical record. Personally reviewed and interpreted the images of the following radiographs: Left hand x-ray that shows soft tissue swelling without bony erosion to suggest osteomyelitis Medications Generic Name Dose Route Start Last Admin Trade Name Freq PRN Reason Stop Dose Admin Trimethoprim/Sulfamethoxazole 1 ea 01/18/19 15:15 01/18/19 16:53 Bactrim Ds PO 02/17/19 15:14 1 ea BID [facility] Protocol Vancomycin HCl 750 mg/ 150 mls @ 150 mls/hr 01/18/19 11:00 01/18/19 11:51 Dextrose IV 02/17/19 10:59 150 mls Q12H [facility] Discontinued Medications Generic Name Dose Route Start Last Admin Trade Name Freq PRN Reason Stop Dose Admin Vancomycin HCl 1.25 gm/ Sodium 250 mls @ 166.667 mls/hr 01/17/19 23:00 23:30 Chloride IV 01/18/19 00:29 250 mls ONCE ONE Vancomycin HCl 750 mg/ 150 mls @ 150 mls/hr 01/17/19 22:30 Dextrose IV 02/16/19 22:29 Q12H [facility] Microbiology 01/17/19 21:00 Finger - Eswab Gram Stain - Final 01/17/19 21:00 Finger - Eswab Anaerobic Culture - Preliminary Laboratory Tests 01/17/19 01/17/19 16:00 16:00 WBC 5.04 Hgb 14.8 Plt Count 257 Creatinine 1.0 Ongoing monitoring for antimicrobial toxicity with: CBC, BMP. Nqmv-[id number] time with patient: 63 minutes with >50% of [id number] time spent in counseling, patient education, and coordinating care. Counseling provided included the microbiology of the soft tissue infections, streptococcal infections, staphylococcal infections, Gram-negative infections associated with water, possibility for fungal infections associated with his line of work, expected time to resolution, natural history without treatment, and side effects of treatment.
--- NOTE | 2019-01-18 20:53 | SOAPPROG ---
SOAP Progress Note Assessment/Plan: Assessment: POD 1 (23 hours) L III septic flexor tendon tenosynovitis. Plan: Agree with ID recommendations. Will change to bandaids tomorrow on surgical wounds to facilitate ROM. Keep wounds dry. 01/17/19 16:39 01/18/19 20:53 Subjective: Feels a bit better. Doesnt hurt. Objective: Vital Signs Temp Pulse Resp BP Pulse Ox 36.9 C 64 18 109/59 L 93 01/18/19 20:00 01/18/19 20:00 01/18/19 20:00 01/18/19 20:00 01/18/19 20:00 01/17/19 01/18/19 01/19/19 05:59 05:59 05:59 Output Total 200 Balance -200 AF. Swelling of L III about the same as pre op but now has no pain with direct pressure over P2 on flexor side. Also, able to reach full active and passive extension. Active flexion of L III PIP to 35 deg. GS is Neg for bacteria. Culture at 24 hours is no growth. On Vanco and Bactrim. - Pending Discharge Pending Discharge Within 24 Hours: No Pending Discharge Within 48 Hours: Yes Pending Discharge Date: 01/20/19 Pending Discharge Time: 11:00 ICD10 Worksheet Patient Problems: Problems Problem Status Onset Infectious tenosynovitis Acute Tenosynovitis of finger and hand Acute Tenosynovitis of left hand Acute - ICD10 Problem Qualifiers (1) Tenosynovitis of finger and hand (2) Tenosynovitis of left hand
[2019-01-19 07:32] VITALS: BP 112/62
--- NOTE | 2019-01-19 08:19 | HOSPPROG ---
Hospitalist Progress Note Assessment/Plan: Nadir is a 73yo healthy M presents to ED with left 3rd finger swelling, pain, and decreased ROM. #Left 3rd digit flexor tendon tenosynovitis -appreciate Dr Lozada -s/p I & D -on vancomycin, Bactrim added -pain is well managed *plan: Nadir is anxious to go home,tolerating the Bactrim. Will discuss w ID and have him f/u w Dr Lozada. Subjective: Nadir is feeling great, anxious to go home Objective: Vital Signs Temp Pulse Resp BP Pulse Ox 36.8 C 61 17 112/62 94 01/19/19 07:32 01/19/19 07:32 01/19/19 07:32 01/19/19 07:32 01/19/19 07:32 Laboratory Results 01/19/19 04:39 01/18/19 01/19/19 01/20/19 05:59 05:59 05:59 Intake Total 505 Output Total 1025 Balance -520 - Physical Exam Constitutional: no apparent distress, appears nourished, not in pain Eyes: PERRL Ears, Nose, Mouth, Throat: hearing normal Respiratory: no respiratory distress Gastrointestinal: normoactive bowel sounds Skin: warm, other (left middle finger w dressing in place, no redness noted on hand) Musculoskeletal: full muscle strength Neurologic: AAOx3 Psychiatric: interacting appropriately ICD10 Worksheet Patient Problems: Problems Problem Status Onset Infectious tenosynovitis Acute Tenosynovitis of finger and hand Acute Tenosynovitis of left hand Acute
--- NOTE | 2019-01-19 09:53 | PDIAF ---
- Diagnosis Code Status: Full Code - Medication Management [facility] Antibiotics: amoxicillin 500mg PO TID and Bactrim 1 DS tablet TID [facility] Antibiotic Stop Date: 01/31/19 Discharge Medications: electronically signed and located in the Home Medication List. - Follow Up Care Current Providers and Referrals: LÓPEZ LEWIS [Other] - As per Instructions Eric Wright MD [Medical Doctor] - follow up in 2 weeks
[2019-01-19] MEDS: SULFAMETHOX/TMP 800/160 MG 1 TAB PO SCH (10:04)
--- NOTE | 2019-01-19 10:16 | PCMIDPN ---
Assessment/Plan: Assessment: 73-year-old man with left 3rd finger flexor tendon tenosynovitis secondary to traumatic puncture wound to the base with a dirty mechanical instrument. He has RD experiencing improvement in edema and increased range of motion of the finger after debridement a couple of days of antibiotics. Surgical cultures remain negative, although these are early, he did receive antibiotics in the day prior to undergoing debridement which may render the culture sterile. Due to the critical site of this infection and the potential negative cycle of scarring and fibrosis risking functional use of the finger, we will treat for 2 weeks targeting both staphylococcal and streptococcal organisms. 1. Left 3rd finger flexor tendon tenosynovitis 2. Status post left 3rd finger flexor tendon irrigation and debridement 2018 Plan: 1. Stop vancomycin 2. Bactrim 1 double-strength tablet 3 times a day (approximately 6 milligram/ kilogram per day) 3. Start amoxicillin 500 mg p.o. Three times daily 4. Will stop both antibiotics 01/31/2019 in conjunction with Clinic follow-up 5. Reviewed in detail potential side effects of beta-lactam antibiotics to include: allergy, rash, nausea, antibiotic-associated diarrhea, Clostridioides difficile colitis. 6. Reviewed in detail potential side effects of trimethoprim/sulfamethoxazole to include: allergy, rash, nausea, antibiotic-associated diarrhea, Clostridioides difficile colitis, increased creatinine, increased potassium. Eric Wright MD Infectious Diseases 01/19/19 10:12 Subjective: No fever or chills in the past 24-hours. Tolerating oral diet with solids and liquids. No diarrhea, nausea, or other GI symptoms. No rash. Appetite is normal. He has improving range of motion not left 3rd finger and decreasing edema. Objective: Vital Signs Temp Pulse Resp BP Pulse Ox 36.8 C 61 17 112/62 94 01/19/19 07:32 01/19/19 07:32 01/19/19 07:32 01/19/19 07:32 01/19/19 07:32 Laboratory Results 01/19/19 04:39 01/18/19 01/19/19 01/20/19 05:59 05:59 05:59 Intake Total 505 Output Total 1025 Balance -520 Medications Generic Name Dose Route Start Last Admin Trade Name Freq PRN Reason Stop Dose Admin Trimethoprim/Sulfamethoxazole 1 ea 01/19/19 16:00 Bactrim Ds PO 02/18/19 15:59 TID [facility] Protocol Amoxicillin 500 mg 01/19/19 16:00 Amoxicillin PO 02/18/19 15:59 TID [facility] Protocol Microbiology 01/17/19 21:00 Finger - Eswab Gram Stain - Final 01/17/19 21:00 Finger - Eswab Anaerobic Culture - Preliminary 01/17/19 16:40 Blood Blood Culture - Preliminary 01/17/19 16:10 Blood Blood Culture - Preliminary Laboratory Tests 01/17/19 01/17/19 01/19/19 16:00 16:00 04:39 WBC 5.04 Hgb 14.8 Plt Count 257 Creatinine 1.0 1.1 - Physical Exam General Appearance: no apparent distress, non-toxic EENT: No scleral icterus Respiratory: No respiratory distress, No accessory muscle use Neck: full range of motion, supple Extremities: other (Left 3rd finger covered with dressing, no erythema, decreased edema compared to yesterday, improved range of motion compared to yesterday) Skin: No erythema Neuro/Psych: alert, normal mood/affect, oriented x 3, No confused ICD10 Worksheet Patient Problems: Problems Problem Status Onset Infectious tenosynovitis Acute Tenosynovitis of finger and hand Acute Tenosynovitis of left hand Acute
--- NOTE | 2019-01-19 10:54 | ASMTLACE ---
VASUE Length of stay for Answers: 2 days current admission Acuity / Level of Answers: Yes Care: Did the patient have an inpatient admission? # of Emergency department Answers: 1-2 visits in the last 6 months Score: 6 Date Signed: 01/19/2019 10:53 AM Electronically Signed By:MEGHNA Robertson
--- NOTE | 2019-01-19 10:57 | ASMTCMCOM ---
CM Note CM Note Notes: Pt medically stable for d/c on oral antibiotics, no CM d/c needs identified. Date Signed: 01/19/2019 10:56 AM Electronically Signed By:MEGHNA Robertson
[2019-01-19] MEDS ORDERED: SULFAMETHOX/TMP 800/160 MG 1 TAB PO SCH (16:00)
--- NOTE | 2019-01-19 21:12 | GDS ---
[f rep st] DISCHARGE SUMMARY DISCHARGE DIAGNOSIS: Left 3rd digit flexor tendon tenosynovitis. Briefly, the patient is a 73-year-old gentleman who is healthy. He sustained a left finger flexor tendon tenosynovitis secondary to traumatic puncture wound with a mechanical instrument. He was seen and evaluated by Dr. Lozada. He had a left 3rd finger flexor tendon irrigation and debridement on 01/18/2019. He was also seen by the infectious disease team. At discharge, his wound cultures are pending. He will be discharged on Bactrim and amoxicillin. Dr. Wright, with infectious disease team, will follow up with his cultures and follow up with the patient. He is feeling well today. DISCHARGE CONDITION: Stable. Blood pressure is 112/62, heart rate 61, respiratory rate of 17, O2 sats on room air 94%, temperature 36.8 Celsius. MEDICATIONS AT DISCHARGE: Please see the EMR. DISCHARGE INSTRUCTIONS: 1. Okay to wear a Band-Aid on his finger and to do range of motion. 2. Follow up with Dr. Lozada in 10 days. 3. If he has greater than 3 liquidy stools a day to contact the infectious disease doctor. 4. If he develops redness, swelling, drainage from his finger, to see Dr. Lozada immediately. 5. To get a chemistry panel checked in approximately a week. /[id number]/MODL MTDD
== END 2019-01-19 12:17 | disposition home or self-care (01) | DRG 502 ==
LOC: F3N 17:47 → OBSVTOIN 01-18 13:15
PROVIDERS: ADMIT Internal Medicine; ATTEND Internal Medicine
PROC: 0L9 Tendons, Drainage (ICD-10-PCS; principal; 2019-01-18)
DX: M65.142 Other infective (teno)synovitis, left hand (principal); S61.432A Puncture wound without foreign body of left hand, initial encounter; W29.2XXA Contact with other powered household machinery, initial encounter
CPT/HCPCS: G0378; J0690; J1885; J2405; J2704; J3010; J3370